=== PATIENT | male | born 1990 | race Caucasian/White ===

== ENCOUNTER 2024-02-26 09:18 | Emergency (ER) | payer SELFPAY ==
[2024-02-26 09:43] VITALS: BP 135/89; PULSE 67; RESP 16; TEMP 36.6; O2SAT 99
--- NOTE | 2024-02-26 10:03 | ED.EYEPROB ---
HPI - Eye Problem General Chief complaint: Eye Problems Stated complaint: lt eye twitching,runny nose Time Seen by Provider: 02/26/24 09:58 Source: patient, RN notes reviewed and old records reviewed Mode of arrival: ambulatory Limitations: no limitations History of Present Illness HPI Narrative: 34 year old male presents to [facility] care with complaints of left eye irritation, watering and photosensitivity. Patient reports on he put some icy hot on his hand because it was aching after doing a lot of computer work and his left eye was twitchy and he rubbed his eye forgetting that he had applied the icy hot to his hand and got it in his eye. He reports that he flushed his eye out well and it seemed to be better afterward till that evening and watering and feelings of irritation started again.He reports that he got some eye drops from test company which are helping that he can open his eye today but is still watery and photosensitive. He is concerned because he has [address] back to [place]. He reports no change in vision or any sharp pain to his eye or any feeling like foreign body to eye. Patient does not wear contacts or glasses. MD chief complaint: eye redness and other (irritation and watery) Onset (ago): day(s) (3) Location: left eye Eye Symptoms: burning, redness, photophobia and other (watery) Severity scale (1-10): 3 Treatments Prior to Arrival: irrigated eye and OTC eye drops Related Data Allergies Allergy/AdvReac Type Severity Reaction Status Date / Time morphine Allergy Unknown Other Verified 02/26/24 09:54 Review of Systems Review of Systems: CONSTITUTIONAL: Denies fever, chills, or sweats. EYES: Denies visual changes. Reports redness,, irritation,watery from left eye, denies change in vision is photosensitive ENT: Denies rhinorrhea, congestion, sore throat, or otalgia. CARDIOVASCULAR: Denies chest pain, palpitations, or edema. RESPIRATORY: Denies cough or dyspnea. SKIN: Denies rash or itching. NEUROLOGIC: Denies headache All systems reviewed & are unremarkable except as noted in HPI and below PMFSH Past Medical History Medical History (Updated 02/28/24 @ 07:51 by Michelle Huynh NP) Fracture of left elbow Spontaneous pneumothorax age 17 Surgical History Surgical History (Updated 02/28/24 @ 07:46 by Michelle Huynh NP) H/O hernia repair Social History Social History (Updated 02/28/24 @ 07:46 by Michelle Huynh NP) Smoking status: Never smoker Alcohol intake: current Alcohol use details: social Substance use type: does not use Living arrangements: alone Gender identity (if verbalized by the patient): Male Comments At time of signature, agree with nursing past medical, surgical, social and family history. There is no relevant family history pertinent to the presenting complaint Exam Narrative: GENERAL: Well-appearing, well-nourished, and in no acute distress. HEAD: Normocephalic, atraumatic. EYES: PERRLA and EOMI. Upper and lower eyelids left eye reddened and irritated no orbital cellulitis noted. Sclera and conjunctivae minimally injected, no sharp pain is watery with no mucoid drainage, is photosensitive ENT: Nares clear, no rhinorrhea or epistaxis. Mucous membranes moist. NECK: Supple.no lymphadenopathy CHEST: Clear to auscultation. No respiratory distress.SAO2 99% on room air HEART: Regular rate and rhythm. No murmur heard. Normal peripheral pulses. SKIN: Warm, dry, no rash. NEURO: No focal deficits. Alert and oriented x3. Course Course Emergency Course: Patient is aware of diagnosis, understands and agrees to treatment plan. Anticipatory guidance given. Patient agrees to follow-up as directed and is aware of reasons to seek care at the emergency department. Portions of this record may have been created with voice recognition software Level of Care: Express Care Visit Vital Signs Vital signs: Vital Signs Temperature 36.6 C 02/26/24 09:43 Pulse Ra
== END 2024-02-26 10:20 | disposition home or self-care (01) ==
PROVIDERS: Emergency Provider Registered Nurse
DX: H10.9 Unspecified conjunctivitis (principal)
CPT/HCPCS: 99203; G0463